=== PATIENT | female | born 1960 | race Caucasian/White ===

== ENCOUNTER 2018-05-18 04:38 | Outpatient (CLI) | payer MEDICARE ==
[~2018-05-18 04:38] MED LIST: CITA20TA19 PO; DEXL30CA3 PO; DOCU-169 PO; GABA-341 PO; GABA-530 PO; GLIM1TAB46 PO; LISI-222 PO; METF-438 PO; NORCO10T PO; SITA100T11 PO; TAM75C PO
== END 2018-05-18 23:59 | disposition home or self-care (01) ==
LOC: DIABETIC 04:38
PROVIDERS: ATTEND Family Medicine
DX: E11.9 Type 2 diabetes mellitus without complications (principal); Z71.3 Dietary counseling and surveillance
CPT/HCPCS: G0108

== ENCOUNTER 2020-02-27 22:25 | Emergency (ER) | payer MEDICARE ==
[~2020-02-27] VITALS: Ht 170.2 cm; Wt 76.8 kg
[~2020-02-27 22:25] MED LIST changes: -GLIM1TAB46 PO; +GLIM1TAB6 PO
[2020-02-27] MEDS ORDERED: ondansetron 4mg rapidly disintigrating tab PO ONE (23:05)
[2020-02-27] MEDS ORDERED: HYDROcodone/acetaminophen 5mg/325mg tablet PO ONE (23:05)
[2020-02-27] MEDS ORDERED: ibuprofen tablet 400 MG TABLET PO ONE (23:05)
[2020-02-27] MEDS ORDERED: PRED20TA PO (23:06)
[2020-02-27] MEDS ORDERED: ONDA4TAB12 PO (23:06)
[2020-02-27 23:49] VITALS: BP 139/76
== END 2020-02-27 23:53 | disposition home or self-care (01) ==
LOC: ER 22:26
DX: J45.909 Unspecified asthma, uncomplicated (principal); R51.9 Headache, unspecified; R11.2 Nausea with vomiting, unspecified; I10 Essential (primary) hypertension; E11.9 Type 2 diabetes mellitus without complications; Z98.890 Other specified postprocedural states; Z88.2 Allergy status to sulfonamides; Z88.8 Allergy status to other drugs, medicaments and biological substances; Z79.899 Other long term (current) drug therapy
CPT/HCPCS: 99284

== ENCOUNTER 2023-10-30 18:32 | Emergency (ER) | payer MEDICARE ==
[~2023-10-30] VITALS: Ht 168.9 cm; Wt 77.3 kg
[~2023-10-30 18:32] MED LIST changes: +ONDA4TAB12 PO
[2023-10-30 18:36] VITALS: BP 111/52; PULSE 78; O2SAT 95
[2023-10-30] MEDS: ketorolac tromethamine 15mg/ml inj. IM ONE (19:47)
[2023-10-30 20:08] VITALS: RESP 16; TEMP 97.9
== END 2023-10-30 20:09 | disposition home or self-care (01) ==
LOC: ER 18:33
DX: S90.02XA Contusion of left ankle, initial encounter (principal); M25.472 Effusion, left ankle; I10 Essential (primary) hypertension; J45.909 Unspecified asthma, uncomplicated; E11.9 Type 2 diabetes mellitus without complications; Z98.890 Other specified postprocedural states; Z79.899 Other long term (current) drug therapy; Z79.84 Long term (current) use of oral hypoglycemic drugs; Z88.1 Allergy status to other antibiotic agents; Z88.2 Allergy status to sulfonamides; W06.XXXA Fall from bed, initial encounter; Y93.89 Activity, other specified; Y92.098 Other place in other non-institutional residence as the place of occurrence of the external cause; Y99.8 Other external cause status
CPT/HCPCS: 73610; 96372; 99284; J1885